=== PATIENT | male | born 1965 | race African-American/Black ===

== ENCOUNTER 2019-10-03 05:38 | Day surgery (SDC) | payer OTHER ==
[~2019-10-03] VITALS: Ht 177.8 cm; Wt 96.8 kg
[2019-10-03] MEDS ORDERED: NAPROSYN500 MG (06:24)
[2019-10-03] MEDS ORDERED: FLOMAX0.4 MG PO (06:25)
[2019-10-03 07:24] LABS: BASOPHILS 0.2 % (0-2); EOSINOPHILS 2.4 % (0-7); HEMOGLOBIN 14.2 g/dL (13.5-17.5); IMMATURE GRANULOCYTES 0.2 % (0-5); LYMPHOCYTES 33.7 % (15-50); MCH 28.1 pg (26.0-34.0); MCHC 34.6 g/dL (31.0-37.0); MCV 81.2 fL (80.0-100.0); MEAN PLATELET VOLUME 10.5 fL (7.4-10.4); MONOCYTES 9.6 % (2-11); NEUTROPHILS 53.9 % (40-80); PLATELET COUNT 174 10x3/uL (130-400); RBC 5.05 10x6/uL (4.20-6.10); RDW 13.2 % (11.5-14.5)
[2019-10-03 07:33] VITALS: BP 135/88; Ht 177.8 cm; Wt 96.8 kg
--- NOTE | 2019-10-03 08:23 | NUR ---
0650 PT IS COUGHING AND STATES THAT HE FEELS CONGESTION IN HIS LUNGS. STATES ONSET OF SYMPTOMS BEGAN LAST PM. GAVE PT A MASK TO WEAR WELL THE GUARDS WHO ARE IN THE ROOM WITH THE PATIENT. PT PLACED IN DROPLET ISOLATION. CBC, CXR AND FLU TEST ORDERED ON PT. 0800 RECEIVED REPORT FROM LAB THAT PT HAS TESTED POSITIVE FOR FLU B. SURGERY NOTIFIED AND SURGERY CANCELLED. 0820 IV DC'D. CATHETER TIP INTACT. NO BLEEDING AT SITE. BANDAID APPLIED. LAB WORK AND CXR REPORT IN DISCHARGE PACKET TO BE SENT WITH PT TO [facility]. 0830 PT DISCHARGED AND ACCOMPANIED BY GUARDS. PT AND GUARD HAVE MASKS ON.
== END 2019-10-03 08:30 | disposition home or self-care (01) ==
LOC: D.OPS 05:38
PROVIDERS: Anesthesiology; ATTEND Orthopaedic Surgery
DX: M70.21 Olecranon bursitis, right elbow (principal); M24.021 Loose body in right elbow; J10.1 Influenza due to other identified influenza virus with other respiratory manifestations; Z53.9 Procedure and treatment not carried out, unspecified reason

== ENCOUNTER → 2020-02-25 09:45 | Outpatient (CLI) | payer OTHER ==
[~2020-02-25 09:45] MED LIST: FLOMAX0.4 MG PO; NAPROSYN500 MG
== END | disposition home or self-care (01) ==
LOC: D.MRI 09:45
PROVIDERS: ATTEND Orthopaedic Surgery
DX: M25.521 Pain in right elbow (principal)